=== PATIENT | male | born 1995 | race Caucasian/White ===

== ENCOUNTER 2022-09-11 23:18 | Emergency (ER) | payer OTHER ==
[~2022-09-11] VITALS: Ht 162.6 cm; Wt 90.7 kg
--- NOTE | 2022-09-11 23:47 | NUR ---
XRAY DONE AT BEDSIDE
[2022-09-11] MEDS ORDERED: IBUPROFEN 400 MG TABLET ONE (23:49)
[2022-09-12] MEDS ORDERED: IBUPROFEN 400 MG TABLET PO ONE
--- NOTE | 2022-09-12 00:35 | NUR ---
PT IS MEDICALLY STABLE FOR DISCHARGE. Patient discharged to skilled nursing in [employer]'s custody in stable condition. Written and verbal after care instructions given.
[2022-09-12 00:39] VITALS: BP 143/71
== END 2022-09-12 00:43 ==
LOC: ER 23:23
DX: S63.502A Unspecified sprain of left wrist, initial encounter (principal); S70.01XA Contusion of right hip, initial encounter; Y04.2XXA Assault by strike against or bumped into by another person, initial encounter; Y93.89 Activity, other specified; Y92.89 Other specified places as the place of occurrence of the external cause; Y99.8 Other external cause status
CPT/HCPCS: 73110; 73502